=== PATIENT | female | born 1965 | race Caucasian/White ===

== ENCOUNTER → 2021-02-05 | Outpatient (CLI) | payer BC ==
[~2021-02-05] MED LIST: DAILY VITE1 EACH PO; VITAMIN C 500500 MG PO; VITAMIN D35000 UNI1 PO
== END ==
LOC: MAMO 14:52
DX: Z12.31 Encounter for screening mammogram for malignant neoplasm of breast (principal)
CPT/HCPCS: 77063; 77067